=== PATIENT | male | born 1945 | race Caucasian/White ===

== ENCOUNTER → 2017-03-30 | Outpatient (CLI) | payer OTHER ==
--- NOTE | 2017-03-30 10:08 | DIAGNOSTIC IMAGING REPORT ---
RENAL ULTRASOUND HISTORY: CHRONIC RENAL INSUFFICIENCY,HYPERTENSION,DIABETES COMPARISON: Abdominal ultrasound 07/05/2010. FINDINGS: Right kidney: 11.4 cm. No hydronephrosis. Normal corticomedullary differentiation and cortical thickness. Left kidney: 10.5 cm. No hydronephrosis. Normal corticomedullary differentiation and cortical thickness. Bladder: No bladder wall thickening. The bilateral ureteral jets were identified. IMPRESSION: Normal renal ultrasound. Electronically signed by: Burton Thompson M.D. 03/30/2017 10:07 AM Dictated Date/Time: 03/30/2017 10:06 AM
== END | disposition home or self-care (01) ==
LOC: C.ULTR 09:43
PROVIDERS: ATTEND Family Medicine
DX: E11.9 Type 2 diabetes mellitus without complications (principal); N18.9 Chronic kidney disease, unspecified; I12.9 Hypertensive chronic kidney disease with stage 1 through stage 4 chronic kidney disease, or unspecified chronic kidney disease

== ENCOUNTER → 2018-03-24 | Outpatient (CLI) | payer OTHER | END | disposition home or self-care (01) | LOC: C.LAB1850 12:12 | PROVIDERS: ATTEND Internal Medicine Nephrology | DX: N18.9 Chronic kidney disease, unspecified (principal) ==